=== PATIENT | female | born 1985 | race Caucasian/White ===

== ENCOUNTER 2017-07-20 11:32 | Emergency (ER) | payer OTHER ==
--- NOTE | 2017-07-20 11:50 | CPEKG ---
Heart Rate: 85 RR Interval: 706 P-R Interval: 132 QRSD Interval: 70 QT Interval: 368 QTC Interval: 438 P [place]: 75 QRS [place]: 71 T Wave [place]: -26 EKG Severity - BORDERLINE ECG - EKG Impression: SINUS RHYTHM EKG Impression: BORDERLINE T ABNORMALITIES, DIFFUSE LEADS Electronically Signed By: Austen Sullivan 22-Jul-2017 11:24:58
[2017-07-20 11:57] VITALS: TEMP 98.6
[2017-07-20] MEDS ORDERED: NS 500 ML IV ONE (12:11)
[2017-07-20] MEDS ORDERED: ASPIRIN 81 MG CHEWABLE TAB PO ONE (12:11)
[2017-07-20] MEDS ORDERED: LORazepam 2 MG/ML INJ IVP ONE (12:13)
--- NOTE | 2017-07-20 12:16 | EDPHY ---
H & P Time Seen by Provider: 07/20/17 12:05 HPI/ROS: CHIEF COMPLAINT: "I can't catch my breath" HISTORY OF PRESENT ILLNESS: The patient is a 31-year-old female who presents to the emergency department unable to catch her breath. She has a history of asthma but this feels different. The patient had a similar episode last week but it resolved. She started to feel off last evening. She woke with shortness of breath. She describes mild chest heaviness. No recent fever or chills. No cough. No leg pain or swelling. The patient is on control. Patient's last menstrual period was 3 weeks ago. REVIEW OF SYSTEMS: My complete review of systems is negative except as mentioned in the HPI. Past Medical/Surgical History: Includes asthma Past surgical history: [facility] [place] Social history: The patient has quit smoking Smoking Status: Former smoker Physical Exam: Vitals noted GENERAL: Anxious appearing, no acute distress, alert. HEENT: Eyes normal to inspection, normal pharynx, no signs of dehydration. NECK: No thyromegaly, no lymphadenopathy, supple. RESPIRATORY: Clear to auscultation bilaterally, no rales, rhonchi or wheezing. CVS: Regular rate and rhythm, no rubs, murmurs, or gallops. ABDOMEN: Soft, nontender, nondistended, no organomegaly. BACK: Normal to inspection, no CVA tenderness. SKIN: Normal color, no rash, warm, dry. No pallor. EXTREMITIES: No pedal edema, no calf tenderness, no Homans sign or cords, no joint swelling. NEURO/PSYCH: Alert and oriented x3, anxious, normal affect, normal motor sensory exam. Constitutional: Initial Vital Signs Temperature (C) 37 C 07/20/17 11:36 Heart Rate 86 07/20/17 11:36 Respiratory Rate 20 07/20/17 11:36 Blood Pressure 132/88 H 07/20/17 11:36 O2 Sat (%) 100 07/20/17 11:36 O2 Delivery Mode Room Air Allergies/Adverse Reactions: No Known Allergies Allergy (Unverified 07/20/17 11:39) Home Medications: Medication Instructions Recorded Potassium 07/20/17 Sprintec 28 Day Tablet 07/20/17 Vitamin B-12 07/20/17 Vitamin C 07/20/17 Medical Decision Making - Diagnostics Imaging Results: Imaging Impressions Chest X-Ray 07/20/17 12:12 Impression: Clear lungs. No pneumothorax or pneumonia. ED Course/Re-evaluation: In the emergency department I discussed possible etiologies with the patient. I answered all her questions. IV was placed. Laboratory studies, EKG and chest x-ray were ordered. Patient refused Ativan. EKG shows normal sinus rhythm, normal rate, normal axis, normal intervals. There are no ST or T-wave abnormalities. EKG is normal as interpreted by me. Patient has mildly elevated white count. CBC otherwise unremarkable. Chemistry panel is normal except for mildly low CO2. D-dimer is negative. Troponin is negative. Chest x-ray: Please refer the dictated report. No acute disease. 1355: I rechecked the patient. She was doing well. I discussed all results. I answered her questions. She was given warnings prior to leaving. Differential Diagnosis: My differential includes but is not limited to pneumonia, bronchitis, pulmonary embolus, ACS, anxiety, asthma - Data Points Laboratory Results: Laboratory Results 07/20/17 12:00 07/20/17 12:00 07/20/17 07/20/17 07/20/17 12:00 12:00 12:00 WBC RBC Hgb Hct MCV MCH MCHC RDW Plt Count MPV Neut % (Auto) Lymph % (Auto) [place] % (Auto) Eos % (Auto) Baso % (Auto) Nucleat RBC Rel Count Absolute Neuts (auto) Absolute Lymphs (auto) Absolute Monos (auto) Absolute Eos (auto) Absolute Basos (auto) Absolute Nucleated RBC Immature Gran % Immature Gran # D-Dimer < 0.27 ug/mLFEU ug/mLFEU (0.00-0.50) Sodium 141 mEq/L mEq/L (134-144) Potassium 4.1 mEq/L mEq/L (3.5-5.2) Chloride 107 mEq/L mEq/L (97-110) Carbon Dioxide 19 mEq/l L mEq/l (22-31) Anion Gap 15 mEq/L mEq/L (8-16) BUN 13 mg/dL mg/dL (7-23) Creatinine 0.7 mg/dL mg/dL (0.6-1.0) Estimated GFR > 60 Glucose 90 mg/dL mg/dL (70-100) Calcium 9.8 mg/dL mg/dL (8.5-10.4) Troponin I < 0.012 ng/mL ng/mL (0.000-0.034) Beta HCG, Qual NEGATIVE 07/20/17 12:00 WBC 9.72 10^3/uL H 10^3/uL (3.80-9.50) RBC 4.13 10^6/uL L 10^6/uL (4.18-5.33) Hgb 13.0 g/dL g/dL (12.6-16.3) Hct 38.4 % % (38.0-47.0) MCV 93.0 fL fL (81.5-99.8) MCH 31.5 pg pg (27.9-34.1) MCHC 33.9 g/dL g/dL (32.4-36.7) RDW 12.9 % % (11.5-15.2) Plt Count 305 10^3/uL 10^3/uL (150-400) MPV 10.3 fL fL (8.7-11.7) Neut % (Auto) 44.0 % % (39.3-74.2) Lymph % (Auto) 45.5 % H % (15.0-45.0) [place] % (Auto) 4.9 % % (4.5-13.0) Eos % (Auto) 4.5 % % (0.6-7.6) Baso % (Auto) 0.9 % % (0.3-1.7) Nucleat RBC Rel Count 0.0 % % (0.0-0.2) Absolute Neuts (auto) 4.27 10^3/uL 10^3/uL (1.70-6.50) Absolute Lymphs (auto) 4.42 10^3/uL H 10^3/uL (1.00-3.00) Absolute Monos (auto) 0.48 10^3/uL 10^3/uL (0.30-0.80) Absolute Eos (auto) 0.44 10^3/uL H 10^3/uL (0.03-0.40) Absolute Basos (auto) 0.09 10^3/uL 10^3/uL (0.02-0.10) Absolute Nucleated RBC 0.00 10^3/uL 10^3/uL (0-0.01) Immature Gran % 0.2 % % (0.0-1.1) Immature Gran # 0.02 10^3/uL 10^3/uL (0.00-0.10) D-Dimer Sodium Potassium Chloride Carbon Dioxide Anion Gap BUN Creatinine Estimated GFR Glucose Calcium Troponin I Beta HCG, Qual Medications Given: Discontinued Medications Aspirin (Aspirin) 324 mg PO EDNOW ONE Stop: 07/20/17 12:12 Last Admin: 07/20/17 12:37 Dose: 324 mg Sodium Chloride (Ns) 500 mls @ 1,000 mls/hr IV EDNOW ONE PRN Reason: Protocol Stop: 07/20/17 12:40 Last Admin: 07/20/17 12:36 Dose: 500 mls Lorazepam (Ativan Injection) 1 mg IVP EDNOW ONE Stop: 07/20/17 12:14 Last Admin: 07/20/17 12:43 Dose: Not Given Departure - Departure Disposition: Home, Routine, Self-Care Clinical Impression: Shortness of breath Condition: Good Instructions: Dyspnea (ED) Additional Instructions: Return with increasing shortness of breath, fever, chest pain or any other concerns Referrals: Evette Gregory MD [Primary Care Provider] - 3-4 days, if not improved
[2017-07-20 12:18] LABS: % IMMATURE GRANULYOCYTES 0.2 % (0.0-1.1); ABSOLUTE IMMATURE GRANULOCYTES 0.02 10^3/uL (0.00-0.10); ADD DIFF? NO; ADD MORPH? NO; ADD SCAN? NO; ATYPICAL LYMPHOCYTE FLAG 20 (0-99); FRAGMENT RBC FLAG 0 (0-99); HEMATOCRIT 38.4 % (38.0-47.0); LEFT SHIFT FLG 0 (0-99); LIPEMIA HEMOLYSIS FLAG 90 (0-99); MEAN CELL HEMOGLOBIN 31.5 pg (27.9-34.1); MEAN CELL HEMOGLOBIN CONCENTR. 33.9 g/dL (32.4-36.7); MEAN PLATELET VOLUME 10.3 fL (8.7-11.7); PLATELET CLUMPS FLAG 0 (0-99); PLATELET COUNT 305 10^3/uL (150-400); RED BLOOD CELL COUNT 4.13 10^6/uL (4.18-5.33); RED CELL DISTRIBUTION WIDTH 12.9 % (11.5-15.2)
[2017-07-20 12:25] LABS: ANION GAP 15 mEq/L (8-16); CALCIUM 9.8 mg/dL (8.5-10.4); CARBON DIOXIDE 19 mEq/l (22-31); CHLORIDE 107 mEq/L (97-110); CREATININE 0.7 mg/dL (0.6-1.0); GLOMERULAR FILTRATION RATE > 60; GLUCOSE 90 mg/dL (70-100); POTASSIUM 4.1 mEq/L (3.5-5.2); SODIUM 141 mEq/L (134-144)
[2017-07-20 12:38] LABS: TROPONIN I < 0.012 ng/mL (0.000-0.034)
[2017-07-20 13:55] VITALS: BP 110/78; PULSE 64; RESP 18; O2SAT 96
== END 2017-07-20 14:05 | disposition home or self-care (01) ==
LOC: CED 11:32
DX: R06.02 Shortness of breath (principal); J45.909 Unspecified asthma, uncomplicated; E86.9 Volume depletion, unspecified; Z87.891 Personal history of nicotine dependence
CPT/HCPCS: 71020-PO; 80048-PO; 84484-PO; 84703-PO; 85025-PO; 85378-PO; J2060

== ENCOUNTER 2017-11-16 20:40 | Emergency (ER) | payer OTHER | END 2017-11-16 21:01 | disposition left against medical advice (07) | LOC: CED 20:40 | DX: Z53.21 Procedure and treatment not carried out due to patient leaving prior to being seen by health care provider (principal) ==